=== PATIENT | male | born 1955 | race Caucasian/White ===

== ENCOUNTER 2017-08-22 12:29 | Emergency (ER) | payer MEDICAID ==
[~2017-08-22] VITALS: Ht 180.3 cm; Wt 82.1 kg
[2017-08-22 12:49] VITALS: Ht 180.3 cm; Wt 82.1 kg
[2017-08-22 16:04] VITALS: BP 154/93
== END 2017-08-22 16:04 | disposition home or self-care (01) ==
LOC: ED 12:29
DX: E10.65 Type 1 diabetes mellitus with hyperglycemia (principal); F10.20 Alcohol dependence, uncomplicated
CPT/HCPCS: J1815